=== PATIENT | female | born 1995 | race Caucasian/White ===

== ENCOUNTER 2019-02-28 13:14 | Emergency (ER) | payer BC ==
[2019-02-28 13:31] VITALS: RESP 16; TEMP 98
--- NOTE | 2019-02-28 14:49 | ED ---
Psych HPI - General Chief Complaint: Psychiatric Symptoms Stated Complaint: Mental andrew Time Seen by Provider: 02/28/19 13:34 Source: patient, family, RN notes reviewed Mode of arrival: ambulatory Limitations: no limitations - History of Present Illness Initial Comments: 23-year-old female presents emergency department for depression, suicidal ideation. Patient states that she's had worsening depression over the last one year she does take 20 mg of Prozac but states this helped her. Patient states that she's never talked anybody but her CAMP COUNSELOR who placed her on Prozac. She has an appointment tomorrow for counseling services. Patient states that she could not make it because she feels so depressed, she is very tearful she states that she does not feel that she could harm herself though she does feel suicidal denies any drug or alcohol abuse - Related Data Allergies Allergy/AdvReac Type Severity Reaction Status Date / Time No Known Allergies Allergy Verified 02/28/19 13:28 Review of Systems ROS Statement: Those systems with pertinent positive or pertinent negative responses have been documented in the HPI. ROS Other: All systems not noted in ROS Statement are negative. Past Medical History Past Medical History: No Reported History History of Any Multi-Drug Resistant Organisms: None Reported Past Surgical History: Tonsillectomy Past Psychological History: Depression Smoking Status: Never smoker Past Alcohol Use History: None Reported Past Drug Use History: None Reported General Exam Limitations: no limitations General appearance: alert, in no apparent distress Head exam: Present: atraumatic, normocephalic, normal inspection Eye exam: Present: normal appearance, PERRL, EOMI. Absent: scleral icterus, co njunctival injection, periorbital swelling ENT exam: Present: normal exam, normal oropharynx, mucous membranes moist Neck exam: Present: normal inspection, full ROM. Absent: tenderness, meningismus, lymphadenopathy Respiratory exam: Present: normal lung sounds bilaterally. Absent: respiratory distress, wheezes, rales, rhonchi, stridor Cardiovascular Exam: Present: regular rate, normal rhythm, normal heart sounds. Absent: systolic murmur, diastolic murmur, rubs, gallop, clicks Neurological exam: Present: alert, oriented X3, CN II-XII intact Psychiatric exam: Present: depressed Skin exam: Present: warm, dry, intact, normal color. Absent: rash Course Vital Signs 02/28/19 13:28 Temperature 98 F Pulse Rate 80 Respiratory 16 Rate Blood Pressure 130/82 O2 Sat by Pulse 97 Oximetry Medical Decision Making - Medical Decision Making Patient evaluated by EPS case discussed with psychiatrist recommends outpatient treatment. Patient has appointment tomorrow. Return parameters were discussed. Patient contracts for safety - Lab Data Lab Results 02/28/19 Range/Units 14:45 Urine Opiates Screen Not Detected (NotDetected) Ur Oxycodone Screen Not Detected (NotDetected) Urine Methadone Screen Not Detected (NotDetected) Ur Propoxyphene Screen Not Detected (NotDetected) Ur Barbiturates Screen Not Detected (NotDetected) U Tricyclic Antidepress Not Detected (NotDetected) Ur Phencyclidine Scrn Not Detected (NotDetected) Ur Amphetamines Screen Not Detected (NotDetected) U Methamphetamines Scrn Not Detected (NotDetected) U Benzodiazepines Scrn Not Detected (NotDetected) Urine Cocaine Screen Not Detected (NotDetected) U Marijuana (THC) Screen Not Detected (NotDetected) Disposition Clinical Impression: Depression Disposition: HOME SELF-CARE Condition: Stable Instructions (If sedation given, give patient instructions): Depression (ED) Additional Instructions: Please return to the Emergency Department if symptoms worsen or any other concerns. Is patient prescribed a controlled substance at d/c from ED?: No Referrals: Gael Fabian DO [Primary Care Provider] - 1-2 days Time of Disposition: 15:20
[2019-02-28 15:07] LABS: Amphetamine Screen,Urine Not Detected (NotDetected); Barbiturate Screen,Urine Not Detected (NotDetected); Benzodiazepines Screen,Urine Not Detected (NotDetected); Cocaine Screen,Urine Not Detected (NotDetected); Methadone Screen, Urine Not Detected (NotDetected); Opiate Screen,Urine Not Detected (NotDetected); Oxycodone Screen, Urine Not Detected (NotDetected); Phencyclidine Screen,Urine Not Detected (NotDetected); Tricyclic Antidepressant,Urine Not Detected (NotDetected); Urn Cannabinoid Scrn Not Detected (NotDetected)
[2019-02-28 16:00] VITALS: BP 124/77; PULSE 72
== END 2019-02-28 16:00 | disposition home or self-care (01) ==
LOC: EC 13:14
DX: F32.9 Major depressive disorder, single episode, unspecified (principal); R45.851 Suicidal ideations; Z79.899 Other long term (current) drug therapy
CPT/HCPCS: 80306; 82075; 99285

== ENCOUNTER → 2022-04-07 | Outpatient (CLI) | payer BC ==
[2022-04-07 22:33] LABS: Basophils # (A) 0.05 X 10*3/uL (0.00-0.10); Basophils % (A) 0.5 %; Eosinophils % (A) 4.1 %; HCT 42.2 % (37.2-46.3); HGB 13.5 g/dL (12.0-15.0); Immature Grans, Automated 0.3 %; Lymphocytes # (A) 3.03 X 10*3/uL (0.90-5.00); Lymphocytes % (A) 31.3 %; MCH 28.6 pg (27.0-32.0); MCV 89.4 fL (80.0-97.0); Mean Platelet Volume 9.7 fL (9.5-12.2); Monocytes # (A) 0.71 X 10*3/uL (0.20-1.00); Monocytes % (A) 7.3 %; NRBC Per 100 WBC 0 /100 WBCS (0.0-0.0); Neutrophils # (A) 5.45 X 10*3/uL (1.80-7.70); Neutrophils % (A) 56.5 %; Platelet Count 370 X 10*3/uL (140-440); RBC 4.72 X 10*6/uL (4.10-5.20); RDW 13.2 % (11.5-14.5); WBC 9.67 X 10*3/uL (4.50-10.00)
[2022-04-07 22:44] LABS: African American GFR (CKD) 129.7 (60.0-200.0); Albumin 4.5 g/dL (3.8-4.9); Albumin/Globulin Ratio 1.87 (1.60-3.17); Anion Gap 12.2 mmol/L (10.00-18.00); BUN/Creat Ratio 11.41 Ratio (12.00-20.00); Blood Urea Nitrogen 8.5 mg/dL (9.0-27.0); C Reactive Protein 0.6 mg/dL (0.00-0.80); Calcium 9.5 mg/dL (8.7-10.3); Carbon Dioxide 24.3 mmol/L (20.0-27.5); Globulin 2.4 g/dL (1.6-3.3); Non-African American GFR(CKD) 111.9 (60.0-200.0); Potassium 3.5 mmol/L (3.5-5.5); Total Bilirubin 0.8 mg/dL (0.30-1.20); Total Protein 6.8 g/dL (6.2-8.2)
[2022-04-08 00:24] LABS: Erythrocyte Sedimentation Rate 3 mm/Hr (0-20)
[2022-04-08 00:31] LABS: Gliadin AB IgA, Deaminated NEGATIVE (NEGATIVE); Gliadin AB IgA, Unit 0.8 U/mL; Gliadin AB IgG, Deaminated NEGATIVE (NEGATIVE); Gliadin AB IgG, Unit <0.4 U/mL
[2022-04-08 14:33] LABS: Cryptosporidium Antigen Negative (Negative)
== END | disposition home or self-care (01) ==
LOC: LABWHC1 16:11
PROVIDERS: ATTEND Nurse Practitioner Family
DX: R19.7 Diarrhea, unspecified (principal)
CPT/HCPCS: 36415; 80053; 83516; 83630; 85025; 85652; 86140; 87045; 87046; 87328; 87329

== ENCOUNTER 2024-08-27 11:48 | Emergency (ER) | payer BC, OTHER ==
[2024-08-27] MEDS: KETOROLAC 15 MG/ML 1 ML VIAL IVP STA (12:48)
[2024-08-27] MEDS: PANTOPRAZOLE 40 MG/10 ML VIAL IVP STA (12:48)
[2024-08-27] MEDS: ONDANSETRON 4 MG/2 ML VIAL IVP STA (12:48)
[2024-08-27] MEDS: SODIUM CHLORIDE 0.9% 1,000 ML IV ONE (12:49)
[2024-08-27 12:52] LABS: Basophils # (A) 0.06 10*3/uL (0.00-0.10); Basophils % (A) 0.5 %; Eosinophils # (A) 0.53 10*3/uL (0.04-0.35); Eosinophils % (A) 4.5 %; HCT 42.2 % (37.2-46.3); HGB 14.3 g/dL (12.0-15.0); Lymphocytes # (A) 3.59 10*3/uL (0.90-5.00); Lymphocytes % (A) 30.1 %; MCH 28.8 pg (27.0-32.0); MCHC 33.9 g/dL (32.0-37.0); MCV 84.9 fL (80.0-97.0); Mean Platelet Volume 9.1 fL (9.5-12.2); Monocytes # (A) 1.12 10*3/uL (0.20-1.00); Monocytes % (A) 9.4 %; Neutrophils # (A) 6.56 10*3/uL (1.80-7.70); Neutrophils % (A) 55.1 %; Platelet Count 313 10*3/uL (140-440); RBC 4.97 10*6/uL (4.10-5.20); RDW 13.3 % (11.5-14.5); WBC 11.91 10*3/uL (4.50-10.00)
[2024-08-27 12:57] LABS: Appearance,Urine Clear (Clear); Bilirubin,Urine Negative (Negative); Blood,Urine Negative (Negative); Color,Urine Colorless; Glucose,Urine (UA) Negative (Negative); Ketones,Urine Negative (Negative); Leukocyte Esterase,Urine Negative (Negative); Nitrite,Urine Negative (Negative); Protein,Urine Negative (Negative); Specific Gravity,Urine 1.005 (1.001-1.035); Urobilinogen,Urine <2.0 mg/dL (<2.0)
[2024-08-27 13:09] LABS: ALT 43 U/L (4-34); AST 31 U/L (14-36); African American GFR (CKD) >90 (>60 ml/min/1.73 sqM); Albumin 4.6 g/dL (3.5-5.0); Alkaline Phosphatase 69 U/L (38-126); Amylase 62 U/L (30-110); Anion Gap 11 mmol/L; Blood Urea Nitrogen 10 mg/dL (7-17); Calcium 9.9 mg/dL (8.4-10.2); Carbon Dioxide 24 mmol/L (22-30); Chloride 104 mmol/L (98-107); Glucose 80 mg/dL (74-99); Lipase 118 U/L (23-300); Non-African American GFR(CKD) >90 (>60 ml/min/1.73 sqM); Potassium 4.1 mmol/L (3.5-5.1); Sodium 139 mmol/L (137-145); Total Protein 7.3 g/dL (6.3-8.2)
[2024-08-27 13:26] LABS: INR 0.9 (<1.2); Prothrombin Time 10.5 sec (10.0-12.5)
--- NOTE | 2024-08-27 15:07 | CT ---
EXAMINATION TYPE: CT abdomen pelvis w con DATE OF EXAM: 08/27/2024 COMPARISON: None CLINICAL INDICATION: Female, 28 years old with history of abdominal pain. RLQ; PHH, abdominal pain. R LQ TECHNIQUE: Performed without Oral Contrast and with IV Contrast, patient injected with 100ml mL of Isovue 300. CT DLP: 1936.[address] CTDI: mGy Automated exposure control for dose reduction was used. Findings: The lung bases are clear. The gallbladder is normal without distention, wall thickening, pericholecystic fluid or gallstones. T here is no biliary ductal dilatation. There is no focal mass or organomegaly involving the liver, pancreas, spleen or adrenal glands. There is no solid renal mass or hydronephrosis and there is homogeneous contrast enhancement of the r enal parenchyma. The caliber the abdominal aorta is normal is no retroperitoneal adenopathy or hemorr jayce. The bowel loops are normal in caliber and there is no evidence of dilatation or obstruction. No infla mmatory changes are identified in the bowel wall or mesentery. The appendix is visualized and is norm al There is no free intraperitoneal air. There is a 4.5 cm cystic mass in the right adnexa and a 3.3 cm cyst in the left adnexa. There no free fluid in the cul-de-sac. The osseous structures and soft tissues are intact. IMPRESSION: 1. 4.5 cm cyst in the right adnexa. Pelvic Ultrasound might be useful for further evaluation. 2. No bowel obstruction or inflammation. Normal-appearing appendix. 3. No free intraperitoneal air or fluid. No fluid within the cul-de-sac of the pelvis. [facility], , 08/27/2024 3:04 PM
--- NOTE | 2024-08-27 15:21 | US ---
EXAMINATION TYPE: US transvaginal plus Dopplers DATE OF EXAM: 08/27/2024 COMPARISON: NONE CLINICAL INDICATION: Female, 28 years old with history of RLQ abd pain. Evaluate for ovarian torsion; RLQ pain TECHNIQUE: Transvaginal (TV). Doppler imaging: Color Doppler and spectral waveform analysis of the ovarian arteries and veins. FINDINGS: Date of LMP: 08/02/24 EXAM MEASUREMENTS: Uterus: 8.5 x 4.3 x 3.7 cm Endometrial Stripe: 0.7 cm Right Ovary: 4.1 x 5.0 x 5.0 cm Left Ovary: 3.5 x 3.5 x 3.4 cm 1. Uterus: Anteverted. Hypoechoic area seen adjacent to endometrium at the level of the left anter ior uterine fundus measuring 0.9 x 1.1 x 0.8cm. 2. Endometrium: wnl 3. Right Ovary: cystic area seen measuring 5.2 x 4.7 x 3.8cm 4. Left Ovary: cystic area seen measuring 3.1 x 2.7 x 3.0cm Spectral, color and waveform doppler imaging shows good arterial and venous flow within the ovaries ; there is no evidence for ovarian torsion. 5. Bilateral Adnexa: wnl 6. Posterior cul-de-sac: small amount of free fluid seen IMPRESSION: 1. Suspect a 1.1 cm intramural and partially submucosal fibroid left anterior uterine fundus. 2. A 5.2 cm cyst of the right ovary. Recommend follow-up ultrasound in 6-8 weeks to ensure involution . 3. A 3.1 cm dominant follicle or functional cyst of the left ovary. This can also be reassessed in 6- 8 weeks. 4. No sonographic evidence for ovarian torsion. 5. Trace amount of cul-de-sac free fluid likely physiologic. [facility], , 08/27/2024 3:19 PM
--- NOTE | 2024-08-27 16:08 | ED ---
General Adult HPI - General Chief complaint: Abdominal Pain Stated complaint: Lower R ABD Pain Time Seen by Provider: 08/27/24 12:20 Source: patient, RN notes reviewed, old records reviewed Mode of arrival: ambulatory Limitations: no limitations - History of Present Illness Initial comments: 28-year-old female presents emergency department complaining of acute on chronic abdominal pain. It is present in the right lower quadrant. Has been somewhat worse over the last few days but has been there for multiple months. 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 Denies any vaginal discharge or bleeding. Denies any concern for STDs. Denies any nausea or vomiting or diarrhea. No other acute complaints at this time. Presents for further evaluation. Has no urinary complaints. Does not believe she is preg nant. - Related Data Home Medications Medication Instructions Recorded Confirmed No Known Home Medications 08/27/24 08/27/24 Allergies Allergy/AdvReac Type Severity Reaction Status Date / Time sulfamethoxazole Allergy Rash/Hives Verified 08/27/24 13:06 [From Bactrim] trimethoprim [From Bactrim] Allergy Rash/Hives Verified 08/27/24 13:06 Review of Systems ROS Statement: Those systems with pertinent positive or pertinent negative responses have been documented in the HPI. Review of Systems: CONST: Denies fever EYES: Denies blurry vision ENT: Denies nasal congestion C/V: Denies Chest pain RESP: Denies shortness of breath GI: Endorses right lower quadrant abdominal pain : Denies dysuria SKIN: Denies rash. MSK: Denies joint pain. NEURO: Denies headache ROS Other: All systems not noted in ROS Statement are negative. Past Medical History Past Medical History: No Reported History Additional Past Medical History / Comment(s): kidney stones History of Any Multi-Drug Resistant Organisms: None Reported Past Surgical History: Tonsillectomy Additional Past Surgical History / Comment(s): lithotripsy and sent for kidney stone Past Psychological History: Depression Smoking Status: Never smoker Past Alcohol Use History: None Reported Past Drug Use History: None Reported General Exam - General Exam Comments Initial Comments: General: Appears in no acute distress. HEAD: Normal with no signs of head trauma. EYES: EOMI ENT: Hearing grossly intact, normal oropharynx. RESPIRATORY: Clear breath sounds bilaterally. No wheezes, rales, or rhonchi. C/V: Regular rate and rhythm. S1 and S2 auscultated, no edema, peripheral pulses 2+ and intact throughout ABD: Abdomen soft, nondistended. Tender to palpation in the right lower quadrant. No guarding or rebound tenderness. No peritoneal signs. No rebound tenderness. EXT: Normal range of motion, no obvious deformity SKIN: No rashes or lesions observed on exposed skin. NEURO: Alert and oriented x 4. Limitations: no limitations Course Vital Signs 08/27/24 08/27/24 08/27/24 11:50 14:00 16:31 Temperature 98.0 F 98.4 F Pulse Rate 84 61 85 Respiratory 16 18 17 Rate Blood Pressure 152/95 117/79 127/86 O2 Sat by Pulse 99 98 97 Oximetry Medical Decision Making - Medical Decision Making Was pt. sent in by a medical professional or institution (, PA, FIELD SCOUT, urgent care, hospital, or [place] health care facility...) When possible be specific @ -No Did you speak to anyone other than the patient for history (EMS, parent, family, police, friend...)? What history was obtained from this source @ -No Did you review nursing and triage notes (agree or disagree)? Why? @ -I reviewed and agree with nursing and triage notes Were old charts reviewed (outside hosp., previous admission, EMS record, old EKG, old radiological studies, urgent care reports/EKG's, [place] health care facility records)? Report findings @ -No old charts were reviewed Differential Diagnosis (chest pain, altered mental status, abdominal pain women, abdominal pain men, vaginal bleeding, weakness, fever, dyspnea, syncope, hea dache, dizziness, GI bleed, back pain, seizure, CVA, palpatations, mental health, musculoskeletal)? @ -Differential Abdominal Pain Women: Appendicitis, Cholecystitis, diverticulosis, ischemic bowel, pancreatitis, hepatitis, UTI, gastroenteritis, AAA, incarcerated hernia, bowel obstruction, constipation, inflammatory bowel, hepatitis, peptic ulcer disease, splenic infarction, perforated viscus, vulvitis, ovarian torsion, PID, kidney stone, placenta abruption, this is not meant to be an all-inclusive list EKG interpreted by me (3pts min.). @ -None none X-rays interpreted by me (1pt min.). @ -None done CT interpreted by me (1pt min.). @ -CT abdomen pelvis reveals a 4.5 cm cyst in the right adnexa which appears to be likely ovarian in nature. No other obvious acute findings. U/S interpreted by me (1pt. min.). @ -Ultrasound reveals a right-sided ovarian cyst without evidence of ovarian torsion. Patient has a uterine fibroid as well. Patient also has a dominant follicle of the left ovary. Recommend repeat imaging. What testing was considered but not performed or refused? (CT, X-rays, U/S, labs)? Why? @ -None What meds were considered but not given or refused? Why? @ -None Did you discuss the management of the patient with other professionals (professionals i.e. , PA, FIELD SCOUT, lab, RT, psych nurse, nephrology social worker, bid analyst, teacher, employee service officer, case picker)? Give summary @ -No Was smoking cessation discussed for >3mins.? @ -No Was critical care preformed (if so, how long)? @ -No Were there social determinants of health that impacted care today? How? (Homelessness, low income, unemployed, alcoholism, drug addiction, transportation, low edu. Level, literacy, decrease access to med. care, half-way, rehab)? @ -No Was there de-escalation of care discussed even if they declined (Discuss DNR or withdrawal of care, Hospice)? DNR status @ -No What co-morbidities impacted this encounter? (DM, HTN, Smoking, COPD, CAD, Cancer, CVA, ARF, Chemo, Hep., AIDS, mental health diagnosis, sleep apnea, morbid obesity)? @ -None Was patient admitted / discharged? Hospital course, mention meds given and route, prescriptions, significant lab abnormalities, going to OR and other pertinent info. @ -Based on the patient's presentation and physical exam, patient presents emergency department for acute on chronic abdominal pain. We will obtain abdominal workup including CT imaging. He has received ultrasounds outpatient by do not have access to them. Has no other acute complaints. She was in agreement this plan. Vitals are within acceptable limits. Patient administered IV Toradol, Zofran, Protonix and fluids. Laboratory studies remarkable for mild leukocytosis of 11.9 which is likely reactive. Patient is not . Remainder the workup unremarkable. Patient 's CT imaging reveals a right sided suspected ovarian cyst. Ultrasound recommended and patient was in agreement this plan. Ultrasound reveals no evidence of torsion but does show the ovarian cyst on the right ovary, dominant follicle in the left ovary as well as a uterine fibroid. I discussed results with patient. I believe is safe for her to be discharged home with follow-up with her NEEDLE PUNCH MACHINE OPERATOR. She was in agreement this plan. She will be given a disc of her imaging so she can follow-up with her OB who is not through our system. She was in agreement this plan. Strict return precautions discussed. I instructed the patient to follow up with their PCP in the next 1-3 days. I explained that the patient should return to the emergency department if they experience any worsening symptoms. Strict return precautions were discussed with the patient. The patient expressed understanding of these instructions. I answered all questions that the patient had. The patient was discharged home in good condition with their prescriptions and follow up information. Undiagnosed new problem with uncertain prognosis? @ -No Drug Therapy requiring intensive monitoring for toxicity (Heparin, Nitro, In sulin, Cardizem)? @ -No Were any procedures done? @ -No Diagnosis/symptom? @ -Abdominal pain of unknown etiology, suspect secondary to ovarian cyst Acute, or Chronic, or Acute on Chronic? @ -Acute Uncomplicated (without systemic symptoms) or Complicated (systemic symptoms)? @ -uncomplicated Side effects of treatment? @ -No Exacerbation, Progression, or Severe Exacerbation? @ -No Poses a threat to life or bodily function? How? (Chest pain, USA, SC, pneumonia, PE, COPD, DKA, ARF, appy, cholecystitis, CVA, Diverticulitis, Homicidal, Suicidal, threat to staff... and all critical care pts) @ -Unlikely at this time - Lab Data Result diagrams: 08/27/24 12:44 08/27/24 12:44 Lab Results 08/27/24 08/27/24 08/27/24 Range/Units 12:44 12:44 12:44 WBC 11.91 H (4.50-10.00) 10*3/uL RBC 4.97 (4.10-5.20) 10*6/uL Hgb 14.3 (12.0-15.0) g/dL Hct 42.2 (37.2-46.3) % MCV 84.9 (80.0-97.0) fL MCH 28.8 (27.0-32.0) pg MCHC 33.9 (32.0-37.0) g/dL Plt Count 313 (140-440) 10*3/uL MPV 9.1 L (9.5-12.2) fL Immature Gran % (Auto) 0.4 % Neutrophils % 55.1 % Lymphocytes % 30.1 % Monocytes % 9.4 % Eosinophils % 4.5 % Basophils % 0.5 % Immature Gran # 0.05 H (0.00-0.04) 10*3/uL Neutrophils # 6.56 (1.80-7.70) 10*3/uL Lymphocytes # 3.59 (0.90-5.00) 10*3/uL Monocytes # 1.12 H (0.20-1.00) 10*3/uL Eosinophils # 0.53 H (0.04-0.35) 10*3/uL Basophils # 0.06 (0.00-0.10) 10*3/uL PT 10.5 (10.0-12.5) sec INR 0.9 (<1.2) APTT 26.0 (22.0-30.0) sec Sodium (137-145) mmol/L Potassium (3.5-5.1) mmol/L Chloride (98-107) mmol/L Carbon Dioxide (22-30) mmol/L Anion Gap mmol/L BUN (7-17) mg/dL Creatinine (0.52-1.04) mg/dL Est GFR (CKD-EPI)AfAm (>60 ml/min/1.73 sqM) Est GFR (CKD-EPI)NonAf (>60 ml/min/1.73 sqM) Glucose (74-99) mg/dL Plasma Lactic Acid Greg (0.7-2.0) mmol/L Calcium (8.4-10.2) mg/dL Total Bilirubin (0.2-1.3) mg/dL AST (14-36) U/L ALT (4-34) U/L Alkaline Phosphatase (38-126) U/L Total Protein (6.3-8.2) g/dL Albumin (3.5-5.0) g/dL Amylase (30-110) U/L Lipase (23-300) U/L Urine Color Colorless Urine Appearance Clear (Clear) Urine pH 6.0 (5.0-8.0) Ur Specific [place] 1.005 (1.001-1.035) Urine Protein Negative (Negative) Urine Glucose (UA) Negative (Negative) Urine Ketones Negative (Negative) Urine Blood Negative (Negative) Urine Nitrite Negative (Negative) Urine Bilirubin Negative (Negative) Urine Urobilinogen <2.0 (<2.0) mg/dL Ur Leukocyte Esterase Negative (Negative) Urine HCG, Qual (Not Detectd) 08/27/24 08/27/24 08/27/24 Range/Units 12:44 12:44 12:44 WBC (4.50-10.00) 10*3/uL RBC (4.10-5.20) 10*6/uL Hgb (12.0-15.0) g/dL Hct (37.2-46.3) % MCV (80.0-97.0) fL MCH (27.0-32.0) pg MCHC (32.0-37.0) g/dL Plt Count (140-440) 10*3/uL MPV (9.5-12.2) fL Immature Gran % (Auto) % Neutrophils % % Lymphocytes % % Monocytes % % Eosinophils % % Basophils % % Immature Gran # (0.00-0.04) 10*3/uL Neutrophils # (1.80-7.70) 10*3/uL Lymphocytes # (0.90-5.00) 10*3/uL Monocytes # (0.20-1.00) 10*3/uL Eosinophils # (0.04-0.35) 10*3/uL Basophils # (0.00-0.10) 10*3/uL PT (10.0-12.5) sec INR (<1.2) APTT (22.0-30.0) sec Sodium 139 (137-145) mmol/L Potassium 4.1 (3.5-5.1) mmol/L Chloride 104 (98-107) mmol/L Carbon Dioxide 24 (22-30) mmol/L Anion Gap 11 mmol/L BUN 10 (7-17) mg/dL Creatinine 0.64 (0.52-1.04) mg/dL Est GFR (CKD-EPI)AfAm >90 (>60 ml/min/1.73 sqM) Est GFR (CKD-EPI)NonAf >90 (>60 ml/min/1.73 sqM) Glucose 80 (74-99) mg/dL Plasma Lactic Acid Greg 1.2 (0.7-2.0) mmol/L Calcium 9.9 (8.4-10.2) mg/dL Total Bilirubin 1.0 (0.2-1.3) mg/dL AST 31 (14-36) U/L ALT 43 H (4-34) U/L Alkaline Phosphatase 69 (38-126) U/L Total Protein 7.3 (6.3-8.2) g/dL Albumin 4.6 (3.5-5.0) g/dL Amylase 62 (30-110) U/L Lipase 118 (23-300) U/L Urine Color Urine Appearance (Clear) Urine pH (5.0-8.0) Ur Specific [place] (1.001-1.035) Urine Protein (Negative) Urine Glucose (UA) (Negative) Urine Ketones (Negative) Urine Blood (Negative) Urine Nitrite (Negative) Urine Bilirubin (Negative) Urine Urobilinogen (<2.0) mg/dL Ur Leukocyte Esterase (Negative) Urine HCG, Qual Not Detected (Not Detectd) Disposition Clinical Impression: Ovarian cyst, Abdominal pain of unknown etiology Disposition: HOME SELF-CARE Condition: Good Instructions (If sedation given, give patient instructions): Ovarian Cyst (ED), Abdominal Pain (ED) Is patient prescribed a controlled substance at d/c from ED?: No Referrals: Jackie Snell MD [Primary Care Provider] - 1-2 days Time of Disposition: 16:07
[2024-08-27 16:33] VITALS: BP 127/86; PULSE 85; RESP 17; TEMP 98.4
== END 2024-08-27 16:33 | disposition home or self-care (01) ==
LOC: EC 11:48
DX: R10.31 Right lower quadrant pain (principal); N83.201 Unspecified ovarian cyst, right side; N83.202 Unspecified ovarian cyst, left side; Z88.1 Allergy status to other antibiotic agents; Z88.2 Allergy status to sulfonamides
CPT/HCPCS: 36415; 80053; 82150; 83605; 83690; 85025; 85610; 85730; 81003; 81025; 93975; 76830; 74177; 99284; 96374; 96375; 96361; J2405; J1885; Q9967; J2470